=== PATIENT | female | born 1970 | race Caucasian/White ===

== ENCOUNTER 2018-01-29 22:07 | Emergency (ER) | payer OTHER ==
[~2018-01-29] VITALS: Ht 165.1 cm; Wt 86.2 kg
[~2018-01-29 22:07] MED LIST: ABILIFY; ALPRAZOLAM; AMBIEN5 MG PO; CELEXA; HYDROCODON-ACE1 EAC3; LITHIUM CARBON300 M6 PO; MEDROLDOSEPACK PO; MOBIC15 MG; NAPROSYN500 MG PO; NORCO 5-325 TA1 EACH PO; PERCOCET 10-321 EACH PO; PHENERGAN 25 MG25 M1 PO; PREDNISONE 20 M20 M1 PO; SEROQUEL 25 MG25 M1 PO; VICODIN 5-5001 EACH PO; XANAX1 MG PO; ZANAFLEX; ZANTAC 150MG T150 M1 PO
[2018-01-29 22:09] VITALS: BP 153/89
[2018-01-29 23:14] LABS: URINE BILIRUBIN NEGATIVE (Negative); URINE BLOOD TRACE (Negative); URINE CLARITY CLEAR; URINE COLOR YELLOW; URINE GLUCOSE-RANDOM* NEGATIVE (Negative); URINE KETONES TRACE (Negative); URINE NITRITE-REFLEX NEGATIVE (Negative); URINE PROTEIN (DIPSTICK) TRACE (Negative)
[2018-01-29 23:24] LABS: URINE LEUKOCYTES-REFLEX 1+ (Negative)
[2018-01-29 23:30] LABS: SQUAMOUS >10 Many /LPF (0-3)
[2018-01-29 23:31] LABS: CASTS None Seen /LPF (None Seen); URINE RBC 0-2 Rare /HPF (0-2); URINE WBC-REFLEX 6-15 Few /HPF (0-5)
[2018-01-29 23:32] LABS: CRYSTALS None Seen /LPF (None Seen)
== END 2018-01-30 00:08 | disposition home or self-care (01) ==
LOC: ER 22:07
PROVIDERS: Emergency Medicine
DX: R10.2 Pelvic and perineal pain (principal)